=== PATIENT | female | born 1955 | race Caucasian/White ===

== ENCOUNTER → 2017-03-15 | Outpatient (CLI) | payer MEDICARE ==
--- NOTE | 2017-03-15 13:08 | RAD ---
Deep Doppler renal ultrasound, 03/15/2017: History: Hypertension Duplex evaluation of the main renal arteries was performed including grayscale, color-flow and spectral Doppler analysis. On the left, the main renal artery velocity measurements are within normal limits. Doppler waveforms obtained from the segmental renal arteries are unremarkable. On the right, the peak systolic velocity in the proximal main renal artery is 89 cm/s. In the mid right renal artery the peak systolic velocity is 265 cm/s. The renal artery to aortic velocity ratio at this level is 3.6. These findings suggest significant stenosis. The peak systolic velocity in the distal right renal artery is 106 cm/s. No parvus/tardus phenomena is seen in the distal main renal artery or segmental renal arteries to suggest a severe stenosis. The right kidney measures 11.1 cm in length, while the left kidney measures 10.8 cm. A small subcentimeter parapelvic renal cyst was noted on the left. Limited views of urinary bladder show no abnormality. 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
== END | disposition home or self-care (01) ==
LOC: US 09:37
PROVIDERS: ATTEND Physician Assistant
DX: I10 Essential (primary) hypertension (principal); N28.1 Cyst of kidney, acquired; Z86.79 Personal history of other diseases of the circulatory system
CPT/HCPCS: 76770; 93975

== ENCOUNTER → 2021-06-15 | Day surgery (SDC) | payer MEDICARE, OTHER ==
[~2021-06-15] MED LIST: ACETAMINOPHEN 500 MG TABLET PO PRN; ATOR20TA PO; BACL10TA PO; BALANCED SALT IRRIG SOLN NO.2 500 ML IO ONE; BALANCED SALT IRRIG SOLN NO.2 500 ML ONE; BENZONATATE 100 MG CAPSULE. PO PRN; BRIMONIDINE 0.2% OPHTH SOLUTION 5ML BOTTLE. OD ONE; BRIMONIDINE 0.2% OPHTH SOLUTION 5ML BOTTLE. ONE; BUPR150T8 PO; CEFUROXIME OPHTH 4 MG/0.4 ML SYRINGE. OD ONE; CHONDROIT-SOD-HYALURONATE KIT. OD ONE; CHONDROIT-SOD-HYALURONATE KIT. ONE; CYCL10TA19 PO; GABA600T7 PO; IBUPROFEN 200 MG TABLET PO PRN; IPRATRPIUM/ALBUTEROL 0.5/2.5MG 3 ML NEBU. NEB PRN; IV RINGERS SOLUTION,LACTATED 1,000 ML IV SCH; LIDO/EPI IN BSS OPHTH 2.7 ML SYRINGE. OD ONE; LIDOCAINE 2% JELLY 6ML IN APPLICATOR. ONE; LISI20TA18 PO; MELA3TAB43 PO; MIDAZOLAM HCL PF 2 MG/2 ML VIAL. IV ONE; ONDANSETRON PF 4 MG/2 ML VIAL. IV PRN; OXYC-317 PO; PARO10TA57 PO; PHENYLEPHRINE 2.5% OPHTH SOLUTION 2ML BOTTLE. OD SCH; POVIDONE-IODINE 5% OPHTH SOLUTION 30ML BOTTLE. OD ONE; POVIDONE-IODINE 5% OPHTH SOLUTION 30ML BOTTLE. OD PRN; PROPARACAINE 0.5% OPHTH SOLUTION 15ML BOTTLE. OD ONE; PROPARACAINE 0.5% OPHTH SOLUTION 15ML BOTTLE. OD PRN; QUET100T4 PO; prednisoLONE ACETATE 1% OPHTH SUSPENSION 5ML BOTTLE. OD ONE
[2021-06-15] MEDS: TROPICAMIDE 1% OPHTH SOLUTION 15ML BOTTLE. OD SCH ×3 (11:00→11:14)
[2021-06-15] MEDS: KETOROLAC TROMETHAMINE 0.5% OPHTH SOLUTION BOTTLE. OD SCH ×2 (11:00→11:06)
[2021-06-15] MEDS: PHENYLEPHRINE 10% OPHTH SOLUTION 5ML BOTTLE. OD PRN ×3 (11:00→11:14)
[2021-06-15] MEDS: TOBRAMYCIN 0.3% OPHTH SOLUTION 5ML BOTTLE. OD SCH ×2 (11:00→11:06)
--- NOTE | 2021-06-15 11:21 | NUR ---
Dr. Carpenter in to see pt and eye not dilated as much as he would like so he administered another dose of the 10% Phenylephrine.
--- NOTE | 2021-06-15 11:38 | PDOC4 ---
SURGEON: Carmella Carpenter MD Date of Procedure: 06/15/21 PREOP Diagnosis Visually significant cataract: Right Eye OD POSTOP Diagnosis Same PROCEDURE: Phaco w/ posterior chamber IOL: Right Eye OD ANESTHESIA x Deep forniceal periocular 2% Lidocaine jelly Shantell/retro bulbar block with 2% Lidocaine with 0.5% Marcaine DESCRIPTION OF PROCEDURE The risks, benefits, and alternatives were discussed with the patient who elected to proceed. Informed consent was obtained in writing and placed in the chart After anesthetizing the eye topically, the patient was taken to the operating room, and the operative eye was prepped and draped in the usual sterile fashion for ocular surgery. A wire lid speculum was placed. A 1-mm clear corneal paracentesis incision was created with the side-port blade at a position three o'clock hours clockwise from the temporal cornea. Then, 1% non-preserved Lidocaine with epinephrine was injected into the anterior chamber followed by viscoelastic. Cotton-tipped applicators were used to stabilize the globe, and a 2.4 mm keratome was used to create a self-sealing incision in clear cornea at the temporal limbus. The Utrata forceps were used to create a continuous curvilinear capsulorrhexis. Balanced saline solution was injected via cannula beneath the capsulorrhexis edge to hydrodissect the lens nucleus and cortex from the lens capsule. The phacoemulsification handpiece and a chopping instrument were then used to remove the lens nucleus. The remaining epinuclear material and cortex were removed with the irrigation/aspiration handpiece. Viscoelastic was used to re-inflate the lens capsule, and the intraocular lens was injected directly into the capsular bag. The corneal wound edges were hydrated with balanced salt solution on a cannula and the irrigation/aspiration handpiece was used to extract the remaining viscoelastic. Cefuroxime 0.1mg/ml / Vigamox 0.5% was injected into the anterior chamber intracamerally. The wounds were inspected and found to be watertight at an appropriate intraocular pressure. Topical antibiotic drops were placed on the corneal surface. LRI: No If Yes, Number [] [place] [] Length [] degrees Depth [] microns Incision [place]: 180 Toric Lens [place] [] Patch/shield with Maxitrol/Tobradex/Erythromycin ointment: Yes No Co-managed patients/postop examination stable for co-management with referring doctor. EBL EBL: None SPECIMANS COLLECTED Specimens Collected: None CARMELLA CARPENTER MD Jun 15, 2021 11:37
[2021-06-15 11:49] VITALS: BP 137/72
== END | disposition home or self-care (01) ==
LOC: SURG 10:31
PROVIDERS: ATTEND Ophthalmology
DX: H25.11 Age-related nuclear cataract, right eye (principal)
CPT/HCPCS: 66984; J2250; V2632